=== PATIENT | male | born 1980 | race African-American/Black ===

== ENCOUNTER 2018-09-14 05:58 | Inpatient (IN) ==
[~2018-09-14 05:58] MED LIST: VANCOMYCIN 1,000 MG VIAL ONE; ceFAZolin 1,000 MG VIAL ONE
[2018-09-14] MEDS ORDERED: VANCOMYCIN INJ 1,000 MG in SODIUM CHLORIDE 0.9% 250 ML IV ONE (06:00)
[2018-09-14] MEDS ORDERED: ceFAZolin 1,000 MG in SYRINGE 1 EACH IV ONE (06:00)
[2018-09-14] MEDS ORDERED: ROPIVACAINE 0.5% 30 ML VIAL ONE (06:31)
[2018-09-14] MEDS: LACTATED RINGERS 1,000 ML IV SCH ×2 (06:40→21:24)
[2018-09-14] MEDS ORDERED: TRANEXAMIC ACID 1,000 MG/10 ML VIAL ONE (07:05)
[2018-09-14] MEDS ORDERED: TEMAZEPAM 7.5 MG CAPSULE PO PRN (07:07)
[2018-09-14] MEDS ORDERED: PROMETHAZINE 25 MG/1 ML VIAL IM PRN (07:07)
[2018-09-14] MEDS ORDERED: MAGNESIUM HYDROXIDE SUSP 30 ML UDCUP PO PRN (07:07)
[2018-09-14] MEDS ORDERED: diphenhydrAMINE CAP 25 MG CAPSULE PO PRN (07:07)
[2018-09-14] MEDS ORDERED: ALBUTEROL 2.5 MG/3 ML NEB RESP TX PRN (07:10)
[2018-09-14] MEDS ORDERED: NAPROXEN 250 MG TABLET PO PRN (07:10)
[2018-09-14] MEDS ORDERED: PROPOFOL 200 MG/20 ML VIAL IV ONE (09:20)
[2018-09-14] MEDS ORDERED: SEVOFLURANE 1 UNIT/15 MINUTE INH ONE (09:20)
[2018-09-14] MEDS ORDERED: MIDAZOLAM 2 MG/2 ML VIAL ONE (09:20)
[2018-09-14] MEDS ORDERED: ROCURONIUM 100 MG/10 ML VIAL IV ONE (09:21)
[2018-09-14] MEDS ORDERED: PHENYLEPHRINE 1 MG/10 ML SYRINGE IV ONE (09:21)
[2018-09-14] MEDS ORDERED: ONDANSETRON 4 MG/2 ML VIAL ONE (09:21)
[2018-09-14] MEDS ORDERED: ACETAMINOPHEN 1,000 MG/100 ML VIAL IV ONE (09:21)
[2018-09-14] MEDS: amLODIPine 10 MG TABLET PO SCH (10:23)
[2018-09-14] MEDS: hydroCHLOROthiazide 25 MG TABLET PO SCH (10:23)
[2018-09-14] MEDS: DOCUSATE SODIUM 100 MG CAPSULE PO SCH ×2 (10:24→20:02)
[2018-09-14] MEDS: ONDANSETRON 4 MG/2 ML VIAL IV PRN ×2 (13:41→20:02)
[2018-09-14] MEDS: MORPHINE 4 MG/1 ML VIAL IV PRN ×2 (13:41→20:01)
[2018-09-14] MEDS: ceFAZolin 2,000 MG in PREMIX 1 EACH IV SCH ×2 (15:27→22:58)
[2018-09-14] MEDS: FONDAPARINUX 2.5 MG/0.5 ML SYRINGE SUBCUT SCH (19:02)
[2018-09-15] MEDS: MORPHINE 4 MG/1 ML VIAL IV PRN ×3 (02:19→11:45)
[2018-09-15] MEDS: ONDANSETRON 4 MG/2 ML VIAL IV PRN ×2 (02:20→08:13)
[2018-09-15 05:40] LABS: Osmolality,Calculated 275.5 MOS/KG (273-304); Potassium 3.6 MMOL/L (3.5-5.1)
[2018-09-15 05:59] LABS: Basophils % 0.2 % (0.0-0.8); Eosinophils % 0.2 % (0.00-10.9); Hematocrit 37.8 VOL% (42.0-52.0); Immature Granulocytes % 0.5 %; Immature Granulocytes Absolute 0.06 #; Lymphocytes # 1.3 10*3/uL (1.4-4.0); Lymphocytes % 10.2 % (21.2-54.2); Mean Corpuscular HGB Conc 30.2 GM/DL (32-36); Mean Corpuscular Hemoglobin 22 PG (27-34); Mean Corpuscular Volume 74.1 FL (87-102); Mean Platelet Volume 11.6 FL (9.6-12.0); Monocytes # 1.8 10*3/uL (0.11-0.8); Monocytes % 14.1 % (1.7-12.7); Neutrophils # 9.5 10*3/uL (1.4-7.4); Neutrophils % 74.8 % (38.7-73.9); Platelet Count 194 T/CUMM (130-400); Red Cell Distribution Width 16.6 % (9.3-17.3); White Blood Count 12.7 T/CUMM (4-12)
[2018-09-15 06:01] LABS: Hemoglobin 11.4 GM/DL (14.0-18.0)
[2018-09-15] MEDS: LACTATED RINGERS 1,000 ML IV SCH ×2 (06:48→19:30)
[2018-09-15] MEDS: DOCUSATE SODIUM 100 MG CAPSULE PO SCH ×2 (08:57→20:59)
[2018-09-15] MEDS: hydroCHLOROthiazide 25 MG TABLET PO SCH (08:57)
[2018-09-15] MEDS: amLODIPine 10 MG TABLET PO SCH (09:35)
[2018-09-15] MEDS: FONDAPARINUX 2.5 MG/0.5 ML SYRINGE SUBCUT SCH (18:32)
[2018-09-16 05:08] LABS: Calcium 8.4 MG/DL (8.5-10.1); Potassium 3.4 MMOL/L (3.5-5.1)
[2018-09-16 05:25] LABS: Basophils % 0.2 % (0.0-0.8); Eosinophils # 0.1 10*3/uL (0.0-0.87); Eosinophils % 0.4 % (0.00-10.9); Hematocrit 37.2 VOL% (42.0-52.0); Hemoglobin 11.2 GM/DL (14.0-18.0); Immature Granulocytes % 0.6 %; Immature Granulocytes Absolute 0.08 #; Lymphocytes # 1.2 10*3/uL (1.4-4.0); Lymphocytes % 9.1 % (21.2-54.2); Mean Corpuscular HGB Conc 30.1 GM/DL (32-36); Mean Corpuscular Hemoglobin 22 PG (27-34); Mean Corpuscular Volume 74.4 FL (87-102); Mean Platelet Volume 11.4 FL (9.6-12.0); Monocytes % 14.5 % (1.7-12.7); Neutrophils # 10.2 10*3/uL (1.4-7.4); Neutrophils % 75.2 % (38.7-73.9); Platelet Count 180 T/CUMM (130-400); Red Cell Distribution Width 16.1 % (9.3-17.3); White Blood Count 13.6 T/CUMM (4-12)
[2018-09-16] MEDS: DOCUSATE SODIUM 100 MG CAPSULE PO SCH ×2 (09:23→21:31)
[2018-09-16] MEDS: amLODIPine 10 MG TABLET PO SCH (09:23)
[2018-09-16] MEDS: hydroCHLOROthiazide 25 MG TABLET PO SCH (09:23)
[2018-09-16] MEDS: FONDAPARINUX 2.5 MG/0.5 ML SYRINGE SUBCUT SCH (17:53)
[2018-09-16] MEDS: FERROUS SULFATE 325 MG TABLET PO SCH (21:31)
[2018-09-17 05:36] LABS: Basophils # 0.1 10*3/uL (0.0-0.2); Basophils % 0.4 % (0.0-0.8); Eosinophils # 0.3 10*3/uL (0.0-0.87); Eosinophils % 2.6 % (0.00-10.9); Hematocrit 36.2 VOL% (42.0-52.0); Hemoglobin 10.9 GM/DL (14.0-18.0); Immature Granulocytes % 0.9 %; Immature Granulocytes Absolute 0.11 #; Lymphocytes # 1.2 10*3/uL (1.4-4.0); Lymphocytes % 10.2 % (21.2-54.2); Mean Corpuscular HGB Conc 30.1 GM/DL (32-36); Mean Corpuscular Hemoglobin 22 PG (27-34); Mean Corpuscular Volume 74.5 FL (87-102); Mean Platelet Volume 10.9 FL (9.6-12.0); Monocytes # 1.5 10*3/uL (0.11-0.8); Monocytes % 12.1 % (1.7-12.7); Neutrophils # 8.9 10*3/uL (1.4-7.4); Neutrophils % 73.8 % (38.7-73.9); Platelet Count 181 T/CUMM (130-400); Red Blood Count 4.86 MC/CUMM (3.8-5.5); Red Cell Distribution Width 16.2 % (9.3-17.3); White Blood Count 12.1 T/CUMM (4-12)
[2018-09-17 05:47] LABS: Calcium 8.3 MG/DL (8.5-10.1); Osmolality,Calculated 272.8 MOS/KG (273-304); Potassium 3.5 MMOL/L (3.5-5.1)
[2018-09-17] MEDS: hydroCHLOROthiazide 25 MG TABLET PO SCH (09:19)
[2018-09-17] MEDS: FERROUS SULFATE 325 MG TABLET PO SCH (09:19)
[2018-09-17] MEDS: amLODIPine 10 MG TABLET PO SCH (09:20)
[2018-09-17] MEDS: DOCUSATE SODIUM 100 MG CAPSULE PO SCH (09:20)
[2018-09-17 11:36] VITALS: BP 144/83
== END 2018-09-17 13:21 | disposition home health service (06) | DRG 470 ==
LOC: N.OR 05:58 → N.SDSINP 06:00 → N.3E 07:07
PROVIDERS: ADMIT Orthopaedic Surgery; ATTEND Orthopaedic Surgery